=== PATIENT | male | born 2000 | race Caucasian/White ===

== ENCOUNTER 2020-09-30 15:42 | Emergency (ER) | payer MEDICAID, SELFPAY ==
[~2020-09-30] VITALS: Ht 170.2 cm; Wt 63.5 kg
[2020-09-30 15:58] VITALS: BP_SYST 131
[2020-09-30] MEDS ORDERED: NACL 0.9% 1,000 ML IV ONE (16:30)
[2020-09-30] MEDS ORDERED: KETOROLAC TROMETHAMINE 30 MG VIAL IVP ONE (16:30)
[2020-09-30] MEDS ORDERED: ONDANSETRON HCL 4 MG/2 ML VIAL IVP ONE (16:30)
[2020-09-30] MEDS ORDERED: NAPR-1172 PO (17:33)
[2020-09-30 17:38] VITALS: BP_SYST 126
[2020-09-30 17:53] LABS: CANNABINOID, URINE POSITIVE (NEG <=50); METHAMPHETAMINES SCREEN,URINE POSITIVE (NEG <=500)
[2020-09-30 17:54] LABS: BARBITURATE, URINE NEGATIVE (NEG <=200); BENZODIAZEPINE, URINE NEGATIVE (NEG <=150); COCAINE, URINE NEGATIVE (NEG <=150); OPIATE, URINE NEGATIVE (NEG <=100); PHENCYCLIDINE SCREEN,URINE NEGATIVE (NEG <=25); UR TRICYCLIC ANTIDEPRESSANTS NEGATIVE (NEG <=300); URINE AMPHETAMINE NEGATIVE (NEG <=500); URINE METHADONE NEGATIVE (NEG <=200); URINE OXYCODONE SCREEN NEGATIVE (NEG <=100); URINE PROPOXYPHENE SCREEN NEGATIVE (NEG <=300)
[2020-10-02] MEDS ORDERED: PENI500T PO (17:02)
== END 2020-09-30 17:40 | disposition home or self-care (01) ==
LOC: SED 15:42
DX: M79.18 Myalgia, other site (principal); J02.9 Acute pharyngitis, unspecified; F17.210 Nicotine dependence, cigarettes, uncomplicated; F12.90 Cannabis use, unspecified, uncomplicated; Z79.899 Other long term (current) drug therapy; Z20.822 Contact with and (suspected) exposure to COVID-19
CPT/HCPCS: 36415; 80307; 86403; 87081; 87426; 96361; 96374; 96375; 99284; J1885; J2405; J7030